=== PATIENT | female | born 1975 | race Caucasian/White ===

== ENCOUNTER 2017-02-12 20:28 | Emergency (ER) | payer SELFPAY ==
[2017-02-12 20:44] VITALS: TEMP 98.3
[2017-02-12] MEDS ORDERED: Lidocaine 1% Inj (20ml) INFIL STA (20:56)
[2017-02-12] MEDS ORDERED: Tetanus/Diphtheria Toxoids 0.5 ml Syringe IM ONE (20:56)
[2017-02-12] MEDS ORDERED: Lidocaine 2% Inj (20ml) ONE (21:00)
[2017-02-12] MEDS ORDERED: Bacitracin 500 Units/gm Oint Foilpak UD ONE (21:13)
[2017-02-12] MEDS ORDERED: Ciprofloxacin 0.3% OPTH SOLN ONE (21:14)
[2017-02-12] MEDS ORDERED: Bacitracin 500 Units/gm Oint Foilpak UD TOP STA (21:16)
--- NOTE | 2017-02-12 21:21 | C.PDOC ---
History Of Present Illness 02/12/2017 Erna Goyal is a 42 y/o female who presents to the ED complaining of a laceration on her upper left leg prior to arrival. Patient reports she was taking out her garbage when a glass piece puncture the back side of her left thigh. Patient reports her tetanus shot is not up to date. Patient denies other complaints. Time Seen by Provider: 02/12/17 20:46 Chief Complaint (Nursing): Abnormal Skin Integrity History Per: Patient History/Exam Limitations: no limitations Onset/Duration Of Symptoms: Mins (prior to arrival) Current Symptoms Are (Timing): Still Present Location Of Injury: Left: Leg (posterior left leg laceration ) Quality Of Symptoms: Painful Past Medical History Reviewed: Historical Data, Nursing Documentation, Vital Signs Vital Signs: Last Vital Signs Temp 98.3 F 02/12/17 20:41 Pulse 70 02/12/17 21:36 Resp 16 02/12/17 21:36 BP 122/74 02/12/17 21:36 Pulse Ox 100 02/12/17 22:04 Surgical History: Family History: States: Unknown Family Hx - Social History Hx Alcohol Use: No Hx Substance Use: No - Immunization History Hx Tetanus Toxoid Vaccination: Yes (about 5-6 years) Hx Influenza Vaccination: No Hx Pneumococcal Vaccination: No Review Of Systems Constitutional: Negative for: Fever Respiratory: Negative for: Shortness of Breath Gastrointestinal: Negative for: Vomiting Skin: Positive for: Other (laceration on left thigh) Neurological: Negative for: Headache Physical Exam - Physical Exam Appears: Well, Non-toxic, No Acute Distress Skin: Normal Color, Warm, Dry, Other (2cm laceration on posterior upper thigh. no active bleeding.) Extremity: Normal ROM Neurological/Psych: Oriented x3, Normal Speech, Normal Motor, Normal Sensation Gait: Steady ED Course And Treatment O2 Sat by Pulse Oximetry: 100 (room air) Pulse Ox Interpretation: Normal Laceration - Laceration Repair No standard instances Wound Length (In cm): 2 Description Of Wound: Linear Anesthesia: Lidocaine 1% Wound Examination: Irrigated With Saline, No FB With Wound Exploration Wound Closure: Hardeep (4) Wound Complexity: Simple Medical Decision Making Medical Decision Makin02/12/2017 Impression: 42 y/o female with 2cm laceration posterior upper thigh. 4 hardeep were administered Plan: -- keflex, Bacitracin, Lidocaine, and Tetatnus -- Reassess and disposition Re-evaluation: Discussed results and plan with patient. Patient understands results and is agreeable with plan. All questions answered. Disposition - Disposition Disposition: HOME/ ROUTINE Disposition Time: 21:17 Condition: STABLE Additional Instructions: Follow up with your PMD within 1-2 days. Return to Ed if feel worse. Staple removal in 7-10 days. Prescriptions: Bacitracin OINT 1 applic TP TID #45 g Cephalexin [cephalexin] 500 mg PO Q6 #20 cap Instructions: Laceration (ED), Staple Care (ED) Forms: [employer] ([place]) Print Language: TELUGU - Clinical Impression Clinical Impression: Laceration - Scribe Statement The provider has reviewed the documentation as recorded by the Scribe 02/12/2017 Scribe Attestation: Montse Martinez MD Scribe Attestation: All medical record entries made by the Scribe were at my direction and personally dictated by me. I have reviewed the chart and agree that the record accurately reflects my personal performance of the history, physical exam, medical decision making, and the department course for this patient. I have also personally directed, reviewed, and agree with the discharge instructions and disposition.
[2017-02-12 21:36] VITALS: BP 122/74; PULSE 70; RESP 16
[2017-02-12 22:02] VITALS: O2SAT 100
== END 2017-02-12 21:36 | disposition home or self-care (01) ==
LOC: C.ER 20:28
DX: S71.112A Laceration without foreign body, left thigh, initial encounter (principal); W25.XXXA Contact with sharp glass, initial encounter; Z23 Encounter for immunization

== ENCOUNTER 2017-02-21 17:02 | Emergency (ER) | payer BC ==
[2017-02-21 17:54] VITALS: BMI 24.7
[2017-02-21 17:56] VITALS: BP 132/85; PULSE 72; RESP 18; TEMP 98.2; O2SAT 100
--- NOTE | 2017-02-21 18:20 | C.PDOC ---
History Of Present Illness 42 y/o female presents to ED for staple removal that was placed on 02/12 healing well. Patient states 1 staple accidentally fell out but no bleeding, swelling or redness is noted. No other complaints at this time. FOR STAPLE REMOVAL. PLACED 02/12. HEALING WELL. 1 STAPLE ACCID FELL OUT. NO BLEEDING, SWELLING, REDNESS EXAM NAD SKIN [address] POST L THIGH. NONTEND NO ERYTHEMA, SWELL PROC 4 HARDEEP REMOVED WO DIFF. PT TOELRATED WELL Time Seen by Provider: 02/21/17 18:15 Chief Complaint (Nursing): Suture/Staple Removal History Per: Patient History/Exam Limitations: no limitations Onset/Duration Of Symptoms: Days Ago Current Symptoms Are (Timing): Still Present Location Of Injury: Left: Thigh Past Medical History Reviewed: Historical Data, Nursing Documentation, Vital Signs Vital Signs: Last Vital Signs Temp 98.2 F 02/21/17 17:54 Pulse 72 02/21/17 17:54 Resp 18 02/21/17 17:54 BP 132/85 02/21/17 17:54 Pulse Ox 100 02/21/17 18:42 Surgical History: Family History: States: No Known Family Hx - Social History Hx Alcohol Use: No Hx Substance Use: No - Immunization History Hx Tetanus Toxoid Vaccination: Yes (about 5-6 years) Hx Influenza Vaccination: No Hx Pneumococcal Vaccination: No Review Of Systems Review Of Systems: ROS cannot be obtained secondary to pt's inabilty to answer questions. Constitutional: Negative for: Fever, Chills Gastrointestinal: Negative for: Nausea, Vomiting Musculoskeletal: Negative for: Leg Pain Skin: Negative for: Rash Neurological: Negative for: Weakness, Numbness Physical Exam - Physical Exam Appears: Non-toxic, No Acute Distress Skin: Warm, Dry, No Rash, Other ([address] to posterior left thigh. No erythema. No swelling) Head: Atraumatic, Normacephalic Eye(s): bilateral: Normal Inspection Oral Mucosa: Moist Neck: Normal ROM, Supple Extremity: Normal ROM, Capillary Refill (<2 seconds) Neurological/Psych: Oriented x3, Normal Motor, Normal Sensation ED Course And Treatment O2 Sat by Pulse Oximetry: 100 (RA) Pulse Ox Interpretation: Normal Disposition Counseled Patient/Family Regarding: Diagnosis, Need For Followup - Disposition Disposition: HOME/ ROUTINE Disposition Time: 18:17 Condition: IMPROVED Forms: [facility] (Greek) - Clinical Impression Clinical Impression: Removal of hardeep - Scribe Statement The provider has reviewed the documentation as recorded by the Scribe Swati Sharma All medical record entries made by the Javieribe were at my direction and personally dictated by me. I have reviewed the chart and agree that the record accurately reflects my personal performance of the history, physical exam, medical decision making, and the department course for this patient. I have also personally directed, reviewed, and agree with the discharge instructions and disposition.
[2017-02-21] MEDS ORDERED: Bacitracin 500 Units/gm Oint Foilpak UD ONE (18:22)
== END 2017-02-21 18:33 | disposition home or self-care (01) ==
LOC: C.ER 17:02
DX: Z48.02 Encounter for removal of sutures (principal)